=== PATIENT | female | born 1930 | race African-American/Black ===

== ENCOUNTER 2016-04-29 02:33 | Inpatient (IN) ==
[2016-04-29] MEDS ORDERED: SODIUM CHLORIDE 0.9% 1,000 ML IV STA (02:59)
--- NOTE | 2016-04-29 03:31 | Emergency Department Note ---
IDivya Sierra, am scribing for, and in the presence of, Neri Chavez MD 03:05. Scott Horta Robert M, MD, personally performed the services described in this documentation, ascribed by Melissa Stokes in my presence, and it is both accurate and complete 331 . Arrival - Arrival Chief Complaint: Upper Respiratory ED Nursing Triage Note: C/O Chest congestion/cough/altered mental status. Onset unknown- Nurse reported that she received her at 2300 in this condition. No family present Mode of Arrival: Stretcher Limitations: No Limitations Source: Family Time Seen by Provider: 04/29/16 02:56 - History of Present Illness HPI Narrative: Pt is a 86 y/o female that was brought to the ED via [facility]. Pt has dementia and only responds to verbal stimulation. Family reports the snf has been on lock down since Tuesday April 26, 2016 for the flu and the came off of the lock down yesterday. Daughter states she called every day asking if pt has had any sxs and the snf told her no. Daughter reports when she seen the pt yesterday she noticed she was congested and requested the pt be suctioned which she was. Daughter states she received a call about an hour and a half ago stating the pt was not as alert as she normally is and was congested worse. Daughter also states pt felt warm to her but was not told she was running a fever while at the snf. No other complaints/pain in ED at this time. Onset (ago): unknown Consistency: constant Severity: mild, moderate Severity scale (1-10): 4 Quality: other Date of Last Menstrual Period: PM Allergies/Adverse Reactions: Allergies Allergy/AdvReac Type Severity Reaction Status Date / Time No Known Allergies Allergy Verified 05/12/15 21:08 Home Medications: Home Medications Medication Instructions Recorded Confirmed Type Donepezil [Aricept] 10 mg PO DAILY 11/16/14 04/29/16 History Memantine HCl [Namenda] 10 mg PO BID 11/16/14 04/29/16 History Ondansetron Tab [Zofran Tab] 4 mg PO Q4H PRN 09/23/15 04/29/16 History Haloperidol Tab [Haldol Tab] 0.5 mg PO BEDTIME tablet 10/03/15 04/29/16 Rx Lansoprazole Odt Tab [Prevacid 30 mg PO DAILY tablet 10/03/15 04/29/16 Rx Solutab] Sodium Bicarb Tab 1,300 mg PEG BID tablet 10/03/15 04/29/16 Rx Ferrous Sulfate Liquid [Feosol 300 mg PO BID 04/29/16 04/29/16 History Liquid] Levothyroxine Tab [Synthroid Tab] 50 mcg PO DAILY@0700 04/29/16 04/29/16 History Sertraline HCl [Zoloft] 2.5 ml PO DAILY 04/29/16 04/29/16 History Review of System - Review of System ROS unobtainable: due to dementia Medical,Surgical,& Family Hx - Medical History Cardio: History of: Cardiac Dysrhythmia (afib), Hypertension No history of: CHF, CAD, [place] Psychological: History of: Psychiatric Problems (DEMENTIA) Neurology: History of: Dementia HEENT: History of: Eye Problem (CATARACTS) Endocrine: No history of: Diabetes Mellitus (IDDM), Diabetes Mellitus (NIDDM), Thyroid Disorder Respiratory: History of: Pneumonia No history of: Asthma Renal: No history of: Renal Problems Genitourinary: No history of: Problems Gastrointestinal: History of: Diverticulitis/ Diverticulosis, GERD, Hemorrhoids No history of: Gastrointestinal Bleed, GI Problems Musculoskeletal: History of: Musculoskeletal Problems (FX VENTURA WRISTS) Hematology: History of: Anemia, Clotting Problems (DVT LEFT LEG IVC FILTER PLACED 02/07) - Surgical History Reproductive Surgeries: Patient denies;: Genitourinary Surgery, Gynecologic Surgery Orthopedic Surgeries: Surgical HX of;: Orthopedic Surgery (VENTURA FX WRIST) - Family History Family History: Reports;: Family Diabetes (SISTERS), Family Hypertension ( SISTERS) Denies;: Family Cancer, Family Stroke - Social History Smoking Status: Never smoker Frequency of Alcohol Use: None Type of Drug Use: None Exam Vital Signs: Vital Signs Temperature 98.8 F 04/29/16 02:33 Pulse Rate 102 H 04/29/16 02:33 Respiratory Rate 26 H 04/29/16 02:33 Blood Pressure 128/88 04/29/16 02:33 O2 Sat by Pulse Oximetry 95 04/29/16 02:33 - General Exam limited due to: other (dementia) General appearance: in no apparent distress, other (edentulist) - Head Head exam: Present: atraumatic, normocephalic - Eye Eye exam: Present: PERRL, EOMI - ENT ENT exam: Present: mucous membranes moist. Absent: mucous membranes dry - Neck Neck exam: Present: full ROM. Absent: tenderness - Chest Chest inspection: Present: symmetric chest wall rise. Absent: tenderness - Respiratory Respiratory exam: Present: normal lung sounds bilaterally, other (not moving much air). Absent: respiratory distress - Cardiovascular Cardiovascular exam: Present: regular rate, normal rhythm, normal heart sounds - Abdominal Exam Abdominal exam: Present: soft. Absent: tenderness - Extremities Exam Extremities exam: Present: full ROM. Absent: tenderness - Neurological Exam Neurological exam: Absent: oriented X3 (only responds to verbal stimulation), motor sensory deficit - Psychiatric Psychiatric exam: Present: normal affect - Skin Skin exam: Present: warm, dry Course - Consultations Consultation #1: I will discuss with Dr. Solorio. The patient needs to be admitted. Time: 04:14 Consultation #2: Hospitalist was notified of the admission and will admit the patient. Time: 04:23 Results - Labs CBC & BMP: 04/29/16 03:19 04/29/16 03:19 Lab Results: I have reviewed the patients labs Labs: Lab Results WBC 13.9 T/CUMM (4-12) H 04/29/16 03:19 RBC 4.51 MC/CUMM (3.8-5.5) 04/29/16 03:19 Hgb 12.7 GM/DL (12.0-16.0) 04/29/16 03:19 Hct 39.1 VOL% (35.7-47.0) 04/29/16 03:19 MCV 86.7 FL (87-102) L 04/29/16 03:19 MCH 28 PG (27-34) 04/29/16 03:19 MCHC 32.5 GM/DL (32-36) 04/29/16 03:19 RDW 14.2 % (9.3-17.3) 04/29/16 03:19 Plt Count 192 T/CUMM (130-400) 04/29/16 03:19 MPV 11.1 FL (9.6-12.0) 04/29/16 03:19 Neut % (Auto) 91.7 % (38.7-73.9) H 04/29/16 03:19 Lymph % (Auto) 2.4 % (21.3-54.2) L 04/29/16 03:19 [place] % (Auto) 5.4 % (1.7-12.7) 04/29/16 03:19 Eos % (Auto) 0.0 % (0.00-10.9) 04/29/16 03:19 Baso % (Auto) 0.1 % (0.0-0.8) 04/29/16 03:19 Neut # (Auto) 12.7 10*3/uL (1.4-7.4) H 04/29/16 03:19 Lymph # (Auto) 0.3 10*3/uL (1.4-4.0) L 04/29/16 03:19 [place] # (Auto) 0.8 10*3/uL (0.11-0.8) 04/29/16 03:19 Eos # (Auto) 0.0 10*3/uL (0.0-0.87) 04/29/16 03:19 Baso # (Auto) 0.0 10*3/uL (0.0-0.2) 04/29/16 03:19 Immature Gran % 0.4 % 04/29/16 03:19 Nucleated RBC % 0.0 /100WBC 04/29/16 03:19 Immature Gran # 0.06 # 04/29/16 03:19 Nucleated RBCs # 0.00 10*3/uL 04/29/16 03:19 Sodium 141 MMOL/L (136-145) 04/29/16 03:19 Potassium 4.0 MMOL/L (3.5-5.1) 04/29/16 03:19 Chloride 101 MMOL/L (98-107) 04/29/16 03:19 Carbon Dioxide 30 MMOL/L (21-32) 04/29/16 03:19 Anion Gap 14.0 MMOL/L (5.0-15.0) 04/29/16 03:19 BUN 28 MG/DL (7-18) H 04/29/16 03:19 Creatinine 1.20 MG/DL (0.55-1.02) H 04/29/16 03:19 GFR Calculation 52 ML/MIN 04/29/16 03:19 BUN/Creatinine Ratio 23.00 RATIO (6.00-20.00) H 04/29/16 03:19 Glucose 172 MG/DL (74-106) H 04/29/16 03:19 Calculated Osmolality 290.3 MOS/KG (273-304) 04/29/16 03:19 Calcium 10.1 MG/DL (8.5-10.1) 04/29/16 03:19 Magnesium 1.9 MG/DL (1.8-2.4) 04/29/16 03:19 Urine Color Stacy (Yellow) 04/29/16 03:17 Urine Appearance Cloudy (Clear) 04/29/16 03:17 Urine pH 5.0 (4.5-8.0) 04/29/16 03:17 Ur Specific [place] 1.020 (1.001-1.035) 04/29/16 03:17 Urine Protein 30 MG/DL 04/29/16 03:17 Urine Glucose (UA) Negative mg/dL (Negative) 04/29/16 03:17 Urine Ketones Negative mg/dL (Negative) 04/29/16 03:17 Urine Blood Negative mg/dL (Negative) 04/29/16 03:17 Urine Nitrate Negative (Negative) 04/29/16 03:17 Urine Bilirubin Negative mg/dL (Negative) 04/29/16 03:17 Urine Urobilinogen 2.0 EU/DL (0.2-1.0) H 04/29/16 03:17 Urine Leukocytes Moderate Imelda/ul (Negative) H 04/29/16 03:17 Urine RBC 5 /HPF (0-4) 04/29/16 03:17 Urine WBC 92 /HPF (0-6) 04/29/16 03:17 Urine WBC Clumps Many /HPF (<1) 04/29/16 03:17 Urine Bacteria Many /HPF (Few) 04/29/16 03:17 Urine Mucus Many /LPF (Occasional) 04/29/16 03:17 Ur Culture Indicated? Results to follow 04/29/16 03:17 Microbiology 04/29/16 03:19 Nasal Aspirate Influenza Types A,B Antigen (KIERRA) - Final Negative for Influenza A Ag Negative for Influenza B Ag - Diagnostic Findings Procedure: Chest x-ray: image reviewed by me (improved aeration left lung base. Continued coarsened interstitial markings with right basilar effusion/ atelectasis.) Disposition Clinical Impression: UTI (urinary tract infection), Febrile illness, probable right lower lobe pneumonia, Altered mental status, Alzheimer's type dementia Case discussed with: patient, patient's family Disposition: Still a Patient Condition: Stable Time of Disposition: 04:13
[2016-04-29 03:38] LABS: Basophils % 0.1 % (0.0-0.8); Hematocrit 39.1 VOL% (35.7-47.0); Hemoglobin 12.7 GM/DL (12.0-16.0); Immature Granulocytes % 0.4 %; Immature Granulocytes Absolute 0.06 #; Lymphocytes # 0.3 10*3/uL (1.4-4.0); Lymphocytes % 2.4 % (21.3-54.2); Mean Corpuscular HGB Conc 32.5 GM/DL (32-36); Mean Corpuscular Hemoglobin 28 PG (27-34); Mean Corpuscular Volume 86.7 FL (87-102); Mean Platelet Volume 11.1 FL (9.6-12.0); Monocytes # 0.8 10*3/uL (0.11-0.8); Monocytes % 5.4 % (1.7-12.7); Neutrophils # 12.7 10*3/uL (1.4-7.4); Neutrophils % 91.7 % (38.7-73.9); Platelet Count 192 T/CUMM (130-400); Red Blood Count 4.51 MC/CUMM (3.8-5.5); Red Cell Distribution Width 14.2 % (9.3-17.3); White Blood Count 13.9 T/CUMM (4-12)
[2016-04-29 03:45] LABS: Apearance,Urine CLOUDY (Clear); Bacteria,Urine Many /HPF (Few); Bilirubin,Urine Negative (Negative); Blood, Urine Negative (Negative); Glucose,Urine (UA) Negative (Negative); Ketones,Urine Negative (Negative); Mucus,Urine Many /LPF (Occasional); Nitrite,Urine Negative (Negative); Protein,Urine 30 MG/DL; RBC,Urine 5 /HPF (0-4); Urine Color Amber (Yellow); WBC,Urine 92 /HPF (0-6)
[2016-04-29 03:55] LABS: Calcium 10.1 MG/DL (8.5-10.1); Magnesium 1.9 MG/DL (1.8-2.4); Osmolality,Calculated 290.3 MOS/KG (273-304)
[2016-04-29 04:21] LABS: Band Neutrophils 4 % (0-10); Lymphocytes 5 % (20-55); Metamyelocytes 1 %; Platelet Estimate Normal; Segmented Neutrophils 87 % (50-85); Total Cells Counted 100
--- NOTE | 2016-04-29 05:38 | Hospitalist History & Physical ---
Assessment and Plan (1) Sepsis Status: Acute Assessment and plan: Could be secondary to UTI and pneumonia, antibiotic, workup Current Visit: Yes (2) Right lower lobe pneumonia Status: Acute Assessment and plan: see above Current Visit: Yes (3) UTI (urinary tract infection) Status: Acute Assessment and plan: see above Current Visit: Yes (4) Elevated serum creatinine Status: Acute Assessment and plan: likely JOSÉ MIGUEL in setting of sepsis Current Visit: Yes (5) S/P percutaneous endoscopic gastrostomy (PEG) tube placement Status: Acute Current Visit: Yes (6) Altered mental status Status: Acute Assessment and plan: w baseline of dementia Current Visit: Yes (7) Dementia Status: Acute Current Visit: No (8) S/P IVC filter Status: Acute Current Visit: Yes (9) H/O deep venous thrombosis Status: Acute Current Visit: Yes History of Present Illness Chief complaint: AMS History of present illness: Ms. Urena is a 86 year old female with multiple chronic comorbidities including dementia brought in from shelter for constellation of symptoms including altered mental status of her baseline and coughing. Reportedly the shelter had the lockdown for low cases and patient were treated prophylactically including this patient. Patient is lethargic and and ROS is unobtainable at this time. Initial ER workup revealed elevated WBC, abnormal urinalysis, and abnormal chest x-ray for possible right lower lobe pneumonia. Home Medications Medication Instructions Recorded Confirmed Type Donepezil [Aricept] 10 mg PO DAILY 11/16/14 04/29/16 History Memantine HCl [Namenda] 10 mg PO BID 11/16/14 04/29/16 History Ondansetron Tab [Zofran Tab] 4 mg PO Q4H PRN 09/23/15 04/29/16 History Haloperidol Tab [Haldol Tab] 0.5 mg PO BEDTIME tablet 10/03/15 04/29/16 Rx Lansoprazole Odt Tab [Prevacid 30 mg PO DAILY tablet 10/03/15 04/29/16 Rx Solutab] Sodium Bicarb Tab 1,300 mg PEG BID tablet 10/03/15 04/29/16 Rx Ferrous Sulfate Liquid [Feosol 300 mg PO BID 04/29/16 04/29/16 History Liquid] Levothyroxine Tab [Synthroid Tab] 50 mcg PO DAILY@0700 04/29/16 04/29/16 History Sertraline HCl [Zoloft] 2.5 ml PO DAILY 04/29/16 04/29/16 History Allergies Allergy/AdvReac Type Severity Reaction Status Date / Time No Known Allergies Allergy Verified 05/12/15 21:08 Medical,Surgical,& Family Hx - Medical History Cardio: History of: Cardiac Dysrhythmia (afib), Hypertension No history of: CHF, CAD, [place] Psychological: History of: Psychiatric Problems (DEMENTIA) Neurology: History of: Dementia HEENT: History of: Eye Problem (CATARACTS) Endocrine: No history of: Diabetes Mellitus (IDDM), Diabetes Mellitus (NIDDM), Thyroid Disorder Respiratory: History of: Pneumonia No history of: Asthma Renal: No history of: Renal Problems Genitourinary: No history of: Problems Gastrointestinal: History of: Diverticulitis/ Diverticulosis, GERD, Hemorrhoids No history of: Gastrointestinal Bleed, GI Problems Musculoskeletal: History of: Musculoskeletal Problems (FX VENTURA WRISTS) Hematology: History of: Anemia, Clotting Problems (DVT LEFT LEG IVC FILTER PLACED 02/07) - Surgical History Reproductive Surgeries: Patient denies;: Genitourinary Surgery, Gynecologic Surgery Orthopedic Surgeries: Surgical HX of;: Orthopedic Surgery (VENTURA FX WRIST) - Family History Family History: Reports;: Family Diabetes (SISTERS), Family Hypertension ( SISTERS) Denies;: Family Cancer, Family Stroke - Social History Smoking Status: Never smoker Frequency of Alcohol Use: None Type of Drug Use: None Exam - Constitutional Vitals: Period Temp Pulse Resp BP Sys/Leonard Pulse Ox Last 24 Hr 98.8 F-98.8 F 102-102 26-26 128-128/88-88 95 Exam: General: Lethargic appearing , in mild acute distress Neck: no JVD, no neck rigidity Heart: s1s2, RRR Lung: Coarse expiratory breath sounds anteriorly abd:soft, ND, PEG tube in place Ext: no edema or cyanosis skin: warm, dry HEENT: eyes closed neuro: limited, moves upper limbs randomly Results - Labs CBC & BMP: 04/29/16 03:19 04/29/16 03:19
[2016-04-29] MEDS ORDERED: ONDANSETRON 4 MG/2 ML VIAL IV PRN (05:51)
[2016-04-29] MEDS ORDERED: ALBUTEROL/IPRATROPIUM 3 ML NEB RESP TX PRN (06:05)
[2016-04-29] MEDS: SODIUM CHLORIDE 0.9% 1,000 ML IV SCH ×2 (07:03→21:25)
[2016-04-29] MEDS: LEVOFLOXACIN INJ 750 MG in PREMIX 1 EACH IV SCH (07:04)
[2016-04-29] MEDS: ENOXAPARIN 40 MG/0.4 ML SYRINGE SUBCUT SCH (07:05)
--- NOTE | 2016-04-29 07:14 | XRay Report ---
History: Chest pain. Shortness of breath Date: 04/29/2016 Study: Chest x-ray AP portable Comparison exam: September 28, 2015 chest x-ray There is borderline to mild cardiomegaly. The pulmonary vasculature is upper normal. Shallow inspiration. There is asymmetric patchy and hazy infiltrates/edema in the right mid to lower lung. There is no gross pleural effusion. There is moderate thoracic spondylosis. Impression: Airspace disease right mid to lower lung which could represent pneumonia or asymmetric pulmonary edema. Cardiomegaly and borderline pulmonary venous hypertension appearance PROCEDURE INTERPRETED AT [facility] DEPARTMENT OF RADIOLOGY Final Report Signed by: Dr. Dayanara Vogel
--- NOTE | 2016-04-29 10:06 | Ultrasound Report ---
History: Chest pain. Short of breath. History of previous DVT Date: 04/29/2016 Study: Bilateral lower extremity color venous Doppler study Comparison exam: Venous ultrasound January 31, 2015 Color Doppler, wave form analysis, and compression analysis of the deep veins of both lower extremities from the common femoral vein level through the popliteal vein level was performed. There is no evidence of DVT or other abnormality in the deep veins of the right lower extremity. There is some chronic mural thrombus of a nonoccluding nature in the mid to inferior left superficial femoral vein which has improved since the comparison study. No acute DVT is seen.. Waveform analysis is otherwise unremarkable. 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 No definite acute DVT PROCEDURE INTERPRETED AT [facility] DEPARTMENT OF RADIOLOGY Final Report Signed by: Dr. Dayanara Vogel
[2016-04-29] MEDS: PANTOPRAZOLE 40 MG VIAL IV SCH (10:33)
[2016-04-29] MEDS: VANCOMYCIN INJ 1,000 MG in SODIUM CHLORIDE 0.9% 250 ML IV SCH (10:33)
[2016-04-29] MEDS ORDERED: ACETAMINOPHEN 325 MG TABLET PO PRN (11:53)
[2016-04-29] MEDS: PIPERACILLIN/TAZOBACTAM 3,375 MG in SODIUM CHLORIDE 0.9% 100 ML IV SCH ×2 (12:04→21:23)
--- NOTE | 2016-04-29 12:21 | Hospitalist Progress Note ---
Assessment and Plan (1) Pneumonia Status: Acute Assessment and plan: Impression: #1. Right lower lobe pneumonia, with concern for gram-negative organisms or staph based on multiple hospitalizations over the past year. #2. Urinary tract infection, possible Plan: Continue IV antibiotics. I discussed resuscitation with the daughter, and she requests full heroic measures at this time. This note was completed using Greetz voice recognition software. There may be driver material handler errors as a result. Current Visit: No Qualifiers: Pneumonia type: due to unspecified organism Laterality: right Lung location: lower lobe of lung Qualified Code(s): J18.1 - Lobar pneumonia, unspecified organism Hospitalist: Subjective Interval history: Follow-up pneumonia and possible urinary infection. The daughter reports that the patient is at 3 or 4 episodes of pneumonia over the past year or so. She was hospitalized at her local hospital last fall and was then transferred here. At that time, she had a PEG tube placed, and then went to a swing bed. She's been transferred from the swing bed to a [facility], where she has resided for the past 6 months. It sounds like the patient does have a subacute decline over the past year or so. She is apparently able to recognize family members. She is fed through the PEG tube. The daughter reports no prior history of any heart disease or stroke. The [facility] where the patient resides was apparently on locked down due to an influenza outbreak. The patient apparently developed some cough and worsening chest congestion, and was sent out to the hospital. She was found to have what appears to be right lower lobe pneumonia. She also had pyuria, which may or may not be asymptomatic. Exam - Constitutional Vitals: Period Temp Pulse Resp BP Sys/Leonrad Pulse Ox Last 24 Hr 101.2 F 86-94 16-20 129-141/68-71 93-96 The patient continues an intermittent fever. She is minimally responsive. She has bilateral rhonchi and upper airway gurgling. Heart is regular with distant tones. Results - Labs CBC & BMP: 04/29/16 03:19 04/29/16 03:19 Lab Results: I have reviewed the past 24 hour labs (chest x-ray shows a right lower lobe infiltrate.)
[2016-04-30] MEDS: PIPERACILLIN/TAZOBACTAM 3,375 MG in SODIUM CHLORIDE 0.9% 100 ML IV SCH ×3 (04:26→22:53)
[2016-04-30] MEDS: ENOXAPARIN 40 MG/0.4 ML SYRINGE SUBCUT SCH (05:41)
[2016-04-30] MEDS: LEVOFLOXACIN INJ 750 MG in PREMIX 1 EACH IV SCH (05:41)
[2016-04-30 07:05] LABS: Basophils % 0.2 % (0.0-0.8); Eosinophils % 0.1 % (0.00-10.9); Hematocrit 31.1 VOL% (35.7-47.0); Immature Granulocytes % 0.4 %; Immature Granulocytes Absolute 0.05 #; Lymphocytes # 0.6 10*3/uL (1.4-4.0); Lymphocytes % 4.5 % (21.3-54.2); Mean Corpuscular HGB Conc 33.4 GM/DL (32-36); Mean Corpuscular Hemoglobin 29 PG (27-34); Mean Corpuscular Volume 86.1 FL (87-102); Mean Platelet Volume 11.3 FL (9.6-12.0); Monocytes # 0.5 10*3/uL (0.11-0.8); Monocytes % 3.9 % (1.7-12.7); Neutrophils # 12.2 10*3/uL (1.4-7.4); Neutrophils % 90.9 % (38.7-73.9); Platelet Count 159 T/CUMM (130-400); Red Blood Count 3.61 MC/CUMM (3.8-5.5); Red Cell Distribution Width 14.3 % (9.3-17.3); White Blood Count 13.5 T/CUMM (4-12)
[2016-04-30 07:06] LABS: Hemoglobin 10.4 GM/DL (12.0-16.0)
[2016-04-30 07:23] LABS: Band Neutrophils 10 % (0-10); Hypochromasia 1+; Lymphocytes 1 % (20-55); Segmented Neutrophils 88 % (50-85); Total Cells Counted 100
[2016-04-30 07:24] LABS: Microcytosis 1+; Platelet Estimate Adequate
[2016-04-30 07:29] LABS: Calcium 8.9 MG/DL (8.5-10.1); Osmolality,Calculated 298.7 MOS/KG (273-304); Potassium 3.4 MMOL/L (3.5-5.1)
[2016-04-30 07:33] LABS: Phosphorous 1.5 MG/DL (2.5-4.9); Prealbumin 13.1 MG/DL (20-40)
--- NOTE | 2016-04-30 08:17 | Hospitalist Progress Note ---
Assessment and Plan (1) Pneumonia Status: Acute Assessment and plan: Impression: #1. Right lower lobe pneumonia, with concern for gram-negative organisms or staph based on multiple hospitalizations over the past year. #2. Hypokalemia Plan: Continue IV antibiotics. Subsequent potassium. Recheck lab in the morning. This note was completed using Ookbee voice recognition software. There may be cokeman errors as a result. Current Visit: No Qualifiers: Pneumonia type: due to unspecified organism Laterality: right Lung location: lower lobe of lung Qualified Code(s): J18.1 - Lobar pneumonia, unspecified organism Hospitalist: Subjective Interval history: Follow-up healthcare associated pneumonia. The daughter reports that the patient had a pretty good night last night. There is less gurgling, and she did not require much suctioning. She is tolerating tube feedings. Oxygenation has been adequate. Exam - Constitutional Vitals: Period Temp Pulse Resp BP Sys/Leonard Pulse Ox Last 24 Hr 98.7 F-102.8 F 79-94 16-20 100-145/49-72 91-96 Heart is regular with distant tones and no murmur. She has some decreased breath sounds in the right chest. There is no wheezing. Rhonchi have diminished since yesterday's examination. Abdomen soft without mass or tenderness. PEG site looks clean. There is no significant peripheral edema. She appears to be severely demented, and is basically unresponsive to vocal or tactile stimulation. Results - Labs CBC & BMP: 04/30/16 06:38 04/30/16 06:38 Lab Results: I have reviewed the past 24 hour labs (white count is stable. Potassium has dropped a bit. Kidney function is stable.)
[2016-04-30] MEDS ORDERED: POTASSIUM BICARB EFFERVESCENT 25 MEQ TABLET PO ONE (08:18)
[2016-04-30] MEDS: DESITIN 4OZ/NYSTATIN 15 GRAM MIXTURE PASTE TOP SCH ×2 (10:10→22:55)
[2016-04-30] MEDS: PANTOPRAZOLE 40 MG VIAL IV SCH (10:10)
[2016-04-30] MEDS: VANCOMYCIN INJ 1,000 MG in SODIUM CHLORIDE 0.9% 250 ML IV SCH (10:11)
[2016-04-30] MEDS: SODIUM CHLORIDE 0.9% 1,000 ML IV SCH ×2 (18:54→18:55)
[2016-05-01] MEDS ORDERED: MAGNESIUM CITRATE 300 ML BOTTLE ONE (00:46)
[2016-05-01] MEDS: SODIUM CHLORIDE 0.9% 1,000 ML IV SCH ×3 (04:34→21:12)
[2016-05-01] MEDS: PIPERACILLIN/TAZOBACTAM 3,375 MG in SODIUM CHLORIDE 0.9% 100 ML IV SCH ×3 (04:35→20:55)
[2016-05-01] MEDS: LEVOFLOXACIN INJ 750 MG in PREMIX 1 EACH IV SCH (05:25)
[2016-05-01] MEDS: ENOXAPARIN 40 MG/0.4 ML SYRINGE SUBCUT SCH (05:26)
[2016-05-01 07:27] LABS: Calcium 9.6 MG/DL (8.5-10.1); Osmolality,Calculated 297.4 MOS/KG (273-304); Potassium 4.4 MMOL/L (3.5-5.1)
[2016-05-01] MEDS: VANCOMYCIN INJ 1,000 MG in SODIUM CHLORIDE 0.9% 250 ML IV SCH (08:36)
[2016-05-01] MEDS: PANTOPRAZOLE 40 MG VIAL IV SCH (08:37)
[2016-05-01] MEDS: DESITIN 4OZ/NYSTATIN 15 GRAM MIXTURE PASTE TOP SCH ×2 (08:37→20:56)
--- NOTE | 2016-05-01 08:40 | Hospitalist Progress Note ---
Assessment and Plan (1) Pneumonia Status: Acute Assessment and plan: Impression: #1. Right lower lobe pneumonia, with concern for gram-negative organisms or staph based on multiple hospitalizations over the past year. #2. Hypokalemia Plan: Continue IV antibiotics. Recheck chest x-ray in the morning. If it looks better, will consider discharge then.. This note was completed using Real[employer]out voice recognition software. There may be service dismantler errors as a result. Current Visit: No Qualifiers: Pneumonia type: due to unspecified organism Laterality: right Lung location: lower lobe of lung Qualified Code(s): J18.1 - Lobar pneumonia, unspecified organism Hospitalist: Subjective Interval history: Follow-up pneumonia and end-stage dementia. The patient appears to have had a fairly stable night. She remains afebrile, and continues to tolerate tube feedings. Exam - Constitutional Vitals: Period Temp Pulse Resp BP Sys/Leonard Pulse Ox Last 24 Hr 99.1 F-100 F 70-78 18-19 132-167/70-88 92-100 Temperature curve is trending down. Heart is regular with no murmur gallop. She has a few rhonchi on the chest. Extremities are warm and well perfused. Mental status is unchanged Results - Labs CBC & BMP: 04/30/16 06:38 05/01/16 06:11 Lab Results: I have reviewed the past 24 hour labs
[2016-05-01 14:56] LABS: Procalcitonin, S 4.2 ng/mL (<=0.15)
[2016-05-02] MEDS: PIPERACILLIN/TAZOBACTAM 3,375 MG in SODIUM CHLORIDE 0.9% 100 ML IV SCH ×3 (03:08→21:33)
[2016-05-02] MEDS: ENOXAPARIN 40 MG/0.4 ML SYRINGE SUBCUT SCH (05:15)
[2016-05-02 06:28] LABS: Calcium 9.8 MG/DL (8.5-10.1); Magnesium 2.1 MG/DL (1.8-2.4); Osmolality,Calculated 289.8 MOS/KG (273-304); Phosphorous 1.5 MG/DL (2.5-4.9); Potassium 4.4 MMOL/L (3.5-5.1)
[2016-05-02] MEDS: LEVOFLOXACIN INJ 750 MG in PREMIX 1 EACH IV SCH (07:03)
[2016-05-02] MEDS: VANCOMYCIN INJ 1,000 MG in SODIUM CHLORIDE 0.9% 250 ML IV SCH (08:20)
[2016-05-02] MEDS: DESITIN 4OZ/NYSTATIN 15 GRAM MIXTURE PASTE TOP SCH ×2 (08:21→21:35)
[2016-05-02] MEDS: PANTOPRAZOLE 40 MG VIAL IV SCH (08:21)
--- NOTE | 2016-05-02 08:26 | Hospitalist Progress Note ---
Assessment and Plan (1) Pneumonia Status: Acute Assessment and plan: Impression: #1. Right lower lobe pneumonia, with concern for gram-negative organisms or staph based on multiple hospitalizations over the past year. #2. Hypokalemia Plan: We are rechecking her chest x-ray today. If it shows improvement, we can discharge her back to the alf This note was completed using [employer] voice recognition software. There may be client support analyst errors as a result. Current Visit: No Qualifiers: Pneumonia type: due to unspecified organism Laterality: right Lung location: lower lobe of lung Qualified Code(s): J18.1 - Lobar pneumonia, unspecified organism Hospitalist: Subjective Interval history: Follow-up pneumonia. The daughter reports that the patient had a pretty good night last night, but continues to cough. Chest x-ray has not yet been done. Exam - Constitutional Vitals: Period Temp Pulse Resp BP Sys/Leonard Pulse Ox Last 24 Hr 98.1 F-99.0 F 62-71 18-20 134-185/64-82 97-100 She is afebrile. Heart is regular with no murmur or gallop. She has a few scattered rales in the right base, but the lungs are otherwise fairly clear. PEG tube site looks clean with no erythema or induration. Results - Labs CBC & BMP: 04/30/16 06:38 05/02/16 05:35
--- NOTE | 2016-05-02 09:35 | XRay Report ---
History: Pneumonia Date: 05/02/2016 Study: Chest x-ray AP portable Comparison exam: April 29, 2016 There is cardiomegaly. The mediastinal contours are unchanged. The pulmonary vasculature is upper normal. There is patchy and hazy airspace disease in the mid to lower lung zones bilaterally, right greater than left. Overall this is the same or mildly worsened. There is probable minimal bilateral pleural effusion. Osseous structures are unchanged. Impression: Continued bilateral pneumonia, the same or slightly worsened. Cardiomegaly and probable CHF as well PROCEDURE INTERPRETED AT [facility] DEPARTMENT OF RADIOLOGY Final Report Signed by: Dr. Dayanara Vogel
[2016-05-02] MEDS: SODIUM CHLORIDE 0.9% 1,000 ML IV SCH (21:34)
[2016-05-03] MEDS: ENOXAPARIN 40 MG/0.4 ML SYRINGE SUBCUT SCH (05:05)
[2016-05-03] MEDS: LEVOFLOXACIN INJ 750 MG in PREMIX 1 EACH IV SCH (05:06)
[2016-05-03] MEDS: PIPERACILLIN/TAZOBACTAM 3,375 MG in SODIUM CHLORIDE 0.9% 100 ML IV SCH (06:49)
[2016-05-03] MEDS: SODIUM CHLORIDE 0.9% 1,000 ML IV SCH (06:49)
[2016-05-03] MEDS: DESITIN 4OZ/NYSTATIN 15 GRAM MIXTURE PASTE TOP SCH ×2 (09:44→20:39)
[2016-05-03] MEDS: PANTOPRAZOLE 40 MG VIAL IV SCH (09:44)
[2016-05-03] MEDS: VANCOMYCIN INJ 1,000 MG in SODIUM CHLORIDE 0.9% 250 ML IV SCH (13:23)
--- NOTE | 2016-05-03 13:53 | Hospitalist Progress Note ---
Assessment and Plan - Time spent with patient Time spent with patient: Greater than 30 minutes (1) Altered mental status Status: Acute Current Visit: No (2) Generalized weakness Status: Chronic Current Visit: No (3) Urinary tract infection Status: Acute Current Visit: No (4) Pneumonia Status: Acute Current Visit: No Qualifiers: Pneumonia type: due to unspecified organism Laterality: right Lung location: lower lobe of lung Qualified Code(s): J18.1 - Lobar pneumonia, unspecified organism (5) Afib Status: Acute Current Visit: No (6) Dementia Status: Chronic Assessment and plan: Adjust abx based on sensitivity report. DC vanc and Zosyn. Start Rocephin and continue Levaquin Continue TF and monitor Repeat UA Repeat Labs in a.m Current Visit: No Hospitalist: Subjective Interval history: Being managed for UTI, pneumonia with secondary sepsis. Still having low grade fever despite abx. UCx report noted. BCx has been negative. I spoke with daughter at bedside. CXR appears worse per report Exam - Constitutional Vitals: Period Temp Pulse Resp BP Sys/Leonard Pulse Ox Last 24 Hr 96.5 F-99.8 F 60-70 18-22 121-160/52-87 96-100 General appearance: no acute distress, over weight Exam: sleeping, not verbally responsive - has dementia at baseline - Head Head exam: Present: normal inspection, atraumatic - ENT ENT exam: Present: normal external ear exam - Respiratory Respiratory exam: Present: clear to auscultation bilaterally - Cardiovascular Cardiovascular exam: Present: regular rate and rhythm. Absent: systolic murmur - GI/Abdominal GI/Abdominal exam: Present: normal bowel sounds, distended - Skin Skin exam: Present: normal color, warm, dry Results - Labs CBC & BMP: 04/30/16 06:38 05/02/16 05:35 Lab Results: I have reviewed the past 24 hour labs - Diagnostic Findings Procedure: Chest x-ray: image reviewed by me, report reviewed by me
[2016-05-03] MEDS: cefTRIAXone 1,000 MG in SODIUM CHLORIDE 0.9% 100 ML IV SCH (14:38)
[2016-05-04] MEDS: SODIUM CHLORIDE 0.9% 1,000 ML IV SCH ×2 (01:00→15:21)
[2016-05-04] MEDS: ENOXAPARIN 40 MG/0.4 ML SYRINGE SUBCUT SCH (05:58)
[2016-05-04] MEDS: LEVOFLOXACIN INJ 750 MG in PREMIX 1 EACH IV SCH (05:58)
[2016-05-04 07:12] LABS: Basophils % 0.2 % (0.0-0.8); Eosinophils # 0.3 10*3/uL (0.0-0.87); Eosinophils % 2.6 % (0.00-10.9); Hematocrit 27.5 VOL% (35.7-47.0); Lymphocytes # 0.8 10*3/uL (1.4-4.0); Lymphocytes % 7.5 % (21.3-54.2); Mean Corpuscular HGB Conc 32.7 GM/DL (32-36); Mean Corpuscular Hemoglobin 28 PG (27-34); Mean Corpuscular Volume 86.5 FL (87-102); Mean Platelet Volume 10.5 FL (9.6-12.0); Monocytes % 9.8 % (1.7-12.7); Neutrophils # 7.9 10*3/uL (1.4-7.4); Neutrophils % 78.9 % (38.7-73.9); Platelet Count 184 T/CUMM (130-400); Red Blood Count 3.18 MC/CUMM (3.8-5.5); Red Cell Distribution Width 13.6 % (9.3-17.3)
[2016-05-04 07:38] LABS: Alanine Aminotransferase 18 U/L (13-56); Albumin 1.8 G/DL (3.4-5.0); Alkaline Phosphatase 73 U/L (45-117); Aspartate Amino Transferase 20 U/L (0-37); Bilirubin,Total < 0.39 MG/DL (0.2-1.0); Blood Urea Nitrogen 19 MG/DL (7-18); Glucose 148 MG/DL (74-106); Osmolality,Calculated 290.8 MOS/KG (273-304); Sodium 144 MMOL/L (136-145); Total Protein 5.4 G/DL (6.4-8.3)
[2016-05-04] MEDS: PANTOPRAZOLE 40 MG VIAL IV SCH (09:46)
[2016-05-04] MEDS: DESITIN 4OZ/NYSTATIN 15 GRAM MIXTURE PASTE TOP SCH ×2 (10:04→20:05)
--- NOTE | 2016-05-04 10:54 | Hospitalist Progress Note ---
<Matthew Soria - Last Filed: 05/04/16 10:58> Assessment and Plan (1) Pneumonia Status: Acute Assessment and plan: Continue Rocephin and Levaquin as previously ordered. Will obtain CXR in AM for comparison for previous films on 05/02. Repeat Labs in AM. 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 Current Visit: No (3) Dehydration Status: Acute Assessment and plan: Continue re-hydration as previously ordered; will monitor for volume overload Current Visit: No Hospitalist: Subjective Interval history: Patient seen and examined. No acute overnight events reported. Patient is calm and cooperative; however intermittent confusion remains. Exam - Constitutional Vitals: Period Temp Pulse Resp BP Sys/Leonard Pulse Ox Last 24 Hr 97.5 F-99.7 F 66-80 18-20 148-182/66-81 96-100 General appearance: normal weight, no acute distress - Head Head exam: Present: normal inspection, normocephalic - Eye Eye exam: Present: EOMI Pupils: Present: OLEG, normal accommodation - ENT ENT exam: Present: normal exam - Neck Neck exam: Present: normal inspection. Absent: lymphadenopathy, meningismus, thyromegaly - Respiratory Respiratory exam: Present: decreased breath sounds, rales - Cardiovascular Cardiovascular exam: Present: irregular rhythm - GI/Abdominal GI/Abdominal exam: Present: normal bowel sounds, soft - Extremities Exam Extremities exam: Present: normal inspection, edema (+2 lower extremeties) - Back Exam Back exam: Present: normal inspection - Neurological Exam Neurological exam: Present: alert, other (Intermittant confusion at times) - Psychiatric Psychiatric exam: Present: normal affect - Skin Skin exam: Present: normal color, dry Results - Labs CBC & BMP: 05/04/16 06:20 05/04/16 06:20 Lab Results: I have reviewed the past 24 hour labs <Dawood Waddell - Last Filed: 05/04/16 11:56> Assessment and Plan (1) Altered mental status Status: Acute Current Visit: No (2) Generalized weakness Status: Chronic Current Visit: No (3) Urinary tract infection Status: Acute Current Visit: No (4) Pneumonia Status: Acute Current Visit: No Qualifiers: Pneumonia type: due to unspecified organism Laterality: right Lung location: lower lobe of lung Qualified Code(s): J18.1 - Lobar pneumonia, unspecified organism (5) Afib Status: Acute Current Visit: No (6) Dementia Status: Chronic Current Visit: No Hospitalist: Subjective Interval history: Shared visit with [employer], independently reviewed and examined. Patient being managed for AMS due to UTI and pneumonia. We adjusted his abx based on sensitivity report. No new complains overnight Still with low grade fever but leucocytosis now resolved since abx adjustment Vitals reviewed Plan Continue current abx I agree with a repeat CXR in the morning Continue other care Exam - Constitutional Vitals: Period Temp Pulse Resp BP Sys/Leonard Pulse Ox Last 24 Hr 98.2 F-99.7 F 67-80 18-20 148-182/66-81 96-100 Results - Labs CBC & BMP: 05/04/16 06:20 05/04/16 06:20
[2016-05-04] MEDS: cefTRIAXone 1,000 MG in SODIUM CHLORIDE 0.9% 100 ML IV SCH (15:23)
[2016-05-05] MEDS: SODIUM CHLORIDE 0.9% 1,000 ML IV SCH (00:42)
[2016-05-05] MEDS: ENOXAPARIN 40 MG/0.4 ML SYRINGE SUBCUT SCH (05:07)
[2016-05-05] MEDS: LEVOFLOXACIN INJ 750 MG in PREMIX 1 EACH IV SCH (05:07)
[2016-05-05 07:18] LABS: Basophils % 0.2 % (0.0-0.8); Eosinophils # 0.3 10*3/uL (0.0-0.87); Eosinophils % 3.1 % (0.00-10.9); Hematocrit 28.6 VOL% (35.7-47.0); Immature Granulocytes % 2.2 %; Lymphocytes # 0.8 10*3/uL (1.4-4.0); Lymphocytes % 8.3 % (21.3-54.2); Mean Corpuscular HGB Conc 31.5 GM/DL (32-36); Mean Corpuscular Hemoglobin 28 PG (27-34); Mean Corpuscular Volume 87.7 FL (87-102); Mean Platelet Volume 10.9 FL (9.6-12.0); Monocytes # 0.9 10*3/uL (0.11-0.8); Monocytes % 10.1 % (1.7-12.7); Neutrophils # 6.9 10*3/uL (1.4-7.4); Neutrophils % 76.1 % (38.7-73.9); Platelet Count 140 T/CUMM (130-400); Red Blood Count 3.26 MC/CUMM (3.8-5.5); Red Cell Distribution Width 13.4 % (9.3-17.3); White Blood Count 9.1 T/CUMM (4-12)
[2016-05-05 07:37] LABS: Albumin 1.7 G/DL (3.4-5.0); Bilirubin,Total 0.6 MG/DL (0.2-1.0); Osmolality,Calculated 290.7 MOS/KG (273-304); Potassium 4.2 MMOL/L (3.5-5.1); Total Protein 5.2 G/DL (6.4-8.3)
[2016-05-05] MEDS: PANTOPRAZOLE 40 MG VIAL IV SCH (08:28)
[2016-05-05] MEDS: DESITIN 4OZ/NYSTATIN 15 GRAM MIXTURE PASTE TOP SCH (08:58)
--- NOTE | 2016-05-05 10:53 | Hospitalist Progress Note ---
<Matthew Soria - Last Filed: 05/05/16 10:59> Assessment and Plan (1) Pneumonia Status: Acute Assessment and plan: We will discontinue Rocephin and Levaquin as previously ordered. Will obtain CXR in AM. Repeat Labs in AM. 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 Current Visit: No (3) Dehydration Status: Acute Assessment and plan: Continue re-hydration as previously ordered; will monitor for volume overload. Current Visit: No Hospitalist: Subjective Interval history: Patient seen and examined. No acute overnight issues. WBC's have trended down at 9.1, BUN-17; Creatinine- 0.70. Will discontinue antibiotics today; will assess for possible discharge in AM. Exam - Constitutional Vitals: Period Temp Pulse Resp BP Sys/Leonard Pulse Ox Last 24 Hr 98.4 F-99.8 F 66-73 15-20 147-166/73-81 91-98 General appearance: normal weight, no acute distress - Head Head exam: Present: normal inspection, normocephalic, atraumatic - Eye Eye exam: Present: EOMI, conjunctival injection. Absent: periorbital swelling, scleral icterus, laceration to eyelids Pupils: Present: OLEG, normal accommodation - ENT ENT exam: Present: normal exam - Neck Neck exam: Present: normal inspection. Absent: lymphadenopathy, meningismus, tenderness, thyromegaly - Respiratory Respiratory exam: Absent: decreased breath sounds, rales - Cardiovascular Cardiovascular exam: Present: irregular rhythm. Absent: carotid bruit, diastolic murmur, gallop, JVD, rubs, systolic murmur - GI/Abdominal GI/Abdominal exam: Present: normal bowel sounds. Absent: guarding, tenderness, soft - Extremities Exam Extremities exam: Present: normal inspection - Back Exam Back exam: Present: normal inspection - Neurological Exam Neurological exam: Present: alert, other (Confusion noted) - Psychiatric Psychiatric exam: Present: normal affect - Skin Skin exam: Present: normal color, dry, intact Results - Labs CBC & BMP: 05/05/16 06:59 05/05/16 07:00 Lab Results: I have reviewed the past 24 hour labs <Jackie Duke - Last Filed: 05/05/16 16:17> Hospitalist: Subjective Interval history: Patient seen and examined by me along with VANCE Sroia. No acute events overnight. Possible discharge soon Exam - Constitutional Vitals: Period Temp Pulse Resp BP Sys/Leonard Pulse Ox Last 24 Hr 98.4 F-99.8 F 66-73 15-20 147-166/70-84 91-99 Results - Labs CBC & BMP: 05/05/16 06:59 05/05/16 07:00
[2016-05-06] MEDS: DESITIN 4OZ/NYSTATIN 15 GRAM MIXTURE PASTE TOP SCH ×2 (00:18→09:31)
[2016-05-06] MEDS: ENOXAPARIN 40 MG/0.4 ML SYRINGE SUBCUT SCH (06:14)
[2016-05-06 08:50] LABS: Calcium 9.9 MG/DL (8.5-10.1); Osmolality,Calculated 289.7 MOS/KG (273-304); Phosphorous 2.3 MG/DL (2.5-4.9); Potassium 4.3 MMOL/L (3.5-5.1); Prealbumin 7.9 MG/DL (20-40)
[2016-05-06] MEDS: PANTOPRAZOLE 40 MG VIAL IV SCH (09:21)
[2016-05-06 11:44] VITALS: BP 151/95
--- NOTE | 2016-05-06 14:07 | Discharge Summary ---
Hospital Course - Hospital Course Hospital Course: 86 y/o AAF with Dementia admitted with sepsis secondary to pneumonia and urinary tract infection. She was treated with levaquin and rocephin. She has now completed a seven day course of antibiotics. She is doing much better. Leukocytosis has resolved. She has now reached maximum benefit of inpatient stay and will be discharged back to her senior care. Diagnosis - Discharge Diagnosis (1) Altered mental status Status: Resolved (2) Urinary tract infection Status: Resolved (3) Pneumonia Status: Resolved Discharge Plan - Discharge Data Disposition: Disch/Xfer to Snf Condition at Discharge: Stable Discharge Diet: advance to your usual diet Activity: resume usual activities as tolerated Hygiene: no restrictions Weight Bearing at Discharge: weight bear as tolerated Contact your physician if you experience:: fever over 101, Shortness of breath - Discharge Medications Continue Memantine HCl [Namenda] 10 mg PO BID Donepezil [Aricept] 10 mg PO DAILY Ondansetron Tab [Zofran Tab] 4 mg PO Q4H PRN PRN Reason: Nausea Haloperidol Tab [Haldol Tab] 0.5 mg PO BEDTIME tablet Lansoprazole Odt Tab [Prevacid Solutab] 30 mg PO DAILY tablet Sodium Bicarb Tab 1,300 mg PEG BID tablet Levothyroxine Tab [Synthroid Tab] 50 mcg PO DAILY@0700 Ferrous Sulfate Liquid [Feosol Liquid] 300 mg PO BID Sertraline HCl [Zoloft] 2.5 ml PO DAILY - Follow Up or Referral - Forms/Instructions Exam - Constitutional Vitals: Period Temp Pulse Resp BP Sys/Leonard Pulse Ox Last 24 Hr 97.2 F-98.9 F 64-69 16-20 151-167/75-95 92-99 General appearance: over weight - Head Head exam: Present: normocephalic, atraumatic - Eye Eye exam: Present: EOMI Pupils: Present: OLEG - ENT ENT exam: Present: normal exam - Neck Neck exam: Present: normal inspection - Respiratory Respiratory exam: Present: decreased breath sounds - Cardiovascular Cardiovascular exam: Present: regular rate and rhythm - GI/Abdominal GI/Abdominal exam: Present: normal bowel sounds, soft - Extremities Exam Extremities exam: Present: normal inspection - Back Exam Back exam: Present: normal inspection - Neurological Exam Neurological exam: Present: alert - Psychiatric Psychiatric exam: Present: normal affect - Skin Skin exam: Present: warm, intact Discharge Results Labs on day of discharge: Labs from last 24 hours 05/06/16 07:33 Sodium 145 Potassium 4.3 Chloride 107 Carbon Dioxide 30 Anion Gap 12.3 BUN 14 Creatinine 0.70 GFR Calculation 93 BUN/Creatinine Ratio 20.00 Glucose 110 H Calculated Osmolality 289.7 Calcium 9.9 Phosphorus 2.3 L Prealbumin 7.9 L DS: Provider Date of admission: 04/29/16 05:51 Primary care physician: . No PCP Attending physician on admission: Power Rodriguez Consults: 04/29/16 07:02 Consult to Pharmacy [CONS] Routine Reason for Pharmacy Consult: Adjust Meds Renal Funct 04/29/16 07:13 Consult to Dietitian [CONS] Routine Reason for Dietitian: TF-Initiate/Manage Discharging clinician: Jackie Duke MD
== END 2016-05-06 16:08 | DRG 871 ==
LOC: EDUNIT# → EDBD → N.ED 02:33 → N.EDINP 05:51 → SUATTDRO 05:51 → N.5E 06:24
PROVIDERS: ADMIT Student in an Organized Health Care Education/Training Program; ATTEND Internal Medicine